=== PATIENT | male | born 1975 ===

== ENCOUNTER 2024-06-26 06:55 | Day surgery (SDC) | payer OTHER ==
[2024-06-20 08:23] VITALS: BP 139/88
[2024-06-20 08:40] LABS: HEMATOCRIT 47.1 % (39.0-48.0); MEAN CELL VOLUME 90.4 fL (80.0-100.00); MEAN CORPUSCULAR HEMOGLOBIN 30.7 pg (27.00-32.0); PLATELET COUNT 197 K/uL (150-450); RED BLOOD COUNT 5.22 M/uL (4.00-6.00); RED CELL DISTRIBUTION WIDTH 12.6 % (11.5-14.5)
[2024-06-20 08:43] LABS: PH,URINE 6.5 (5.0-8.0); URINE APPEARANCE Clear; URINE BILIRRUBIN Negative (NEGATIVE); URINE BLOOD Negative; URINE COLOR Yellow; URINE GLUCOSE Negative (NEGATIVE); URINE KETONE Negative (NEGATIVE); URINE LEUKOCYTE Negative; URINE NITRATE Negative; URINE PROTEIN Negative (NEGATIVE); URINE UROBILINOGEN 0.2 E.U./dl
[2024-06-20 08:47] LABS: URINE RBC 4.5 uL (0.0-20.8)
[2024-06-20 08:52] LABS: INR 0.95; PARTIAL THROMBOPLASTIN TIME 26.8 SECONDS (22.0-34.0); PROTHROMBIN TIME 10.4 SECONDS (9.0-11.5)
[2024-06-20 09:13] LABS: URINE BACTERIA 0 uL (0.0-1933); URINE EPITHELIAL CELLS 0.4 uL (0.0-38.8); URINE WBC 0.7 uL (0.0-23.2)
[2024-06-20 10:21] LABS: ALBUMIN 4.3 gm/dL (3.4-5.0); BILIRUBIN TOTAL 0.58 mg/dL (0.3-1.2); CALCIUM 9.7 mg/dL (8.5-10.1); CREATININE SERUM 0.92 mg/dL (0.70-1.30); GFR 86.73; GLOBULINA 3.2 G/DL (2.4-3.5); POTASSIUM 4.82 mEq/L (3.5-5.1); TOTAL PROTEIN 7.5 gm/dL (6.4-8.2)
[~2024-06-26] VITALS: Ht 170.2 cm; Wt 72.6 kg
[~2024-06-26 06:55] MED LIST: CRESTOR40 MG
[2024-06-26] MEDS ORDERED: CEFAZOLIN SODIUM 2,000 MG in 0.9 % SODIUM CHLORIDE 100 ML IV ONE (10:30)
[2024-06-26] MEDS ORDERED: BUPIVACAINE HCL 30 ML VIAL IJ ONE (10:30)
[2024-06-26] MEDS ORDERED: KETOROLAC TROMETHAMINE 30 MG VIAL IV ONE ×2 (10:30→11:15)
[2024-06-26] MEDS ORDERED: KETOROLAC TROMETHAMINE 30 MG VIAL IM ONE (10:30)
[2024-06-26] MEDS ORDERED: LIDOCAINE HCL 1%/EPINEPHRINE 20ML VIAL IJ ONE (10:30)
[2024-06-26] MEDS ORDERED: SUGAMMADEX SODIUM 200 MG/2 ML VIAL IV ONE (11:15)
[2024-06-26] MEDS ORDERED: MORPHINE SULFATE 4 MG/ML VIAL IV ONE (12:20)
== END 2024-06-26 14:25 | disposition home or self-care (01) ==
LOC: CIR.AMB 06:55
PROVIDERS: ATTEND Orthopaedic Surgery
DX: M75.121 Complete rotator cuff tear or rupture of right shoulder, not specified as traumatic (principal); M75.21 Bicipital tendinitis, right shoulder; M24.111 Other articular cartilage disorders, right shoulder